=== PATIENT | male | born 1995 ===

== ENCOUNTER 2023-03-28 03:30 | Emergency (ER) | payer MEDICAID ==
[~2023-03-28] VITALS: Ht 179.1 cm; Wt 68.2 kg
[2023-03-28 03:34] VITALS: TEMP 98.7
[2023-03-28 06:42] VITALS: BP 125/63; PULSE 96; RESP 16
== END 2023-03-28 06:44 | disposition home or self-care (01) ==
LOC: EMS 03:34
DX: S43.005A Unspecified dislocation of left shoulder joint, initial encounter (principal); S00.83XA Contusion of other part of head, initial encounter; F10.129 Alcohol abuse with intoxication, unspecified; W10.8XXA Fall (on) (from) other stairs and steps, initial encounter; Y93.01 Activity, walking, marching and hiking; Y92.89 Other specified places as the place of occurrence of the external cause; Y99.8 Other external cause status; Y90.9 Presence of alcohol in blood, level not specified
CPT/HCPCS: 29105; 70450; 70486; 72125; 99284